=== PATIENT | male | born 1995 | race Caucasian/White ===

== ENCOUNTER 2019-02-20 08:52 | Emergency (ER) | payer OTHER ==
[2019-02-20 09:01] VITALS: BP 149/94; PULSE 84; TEMP 98.3; BMI 25.7
--- NOTE | 2019-02-20 09:12 | PDOC ---
History of Present Illness - General Chief Complaint: Laceration Stated Complaint: SMALL LACERATION TO BASE OF 3RD TOE RIGHT FOOT Time Seen by Provider: 02/20/19 08:57 - History of Present Illness Initial Comments: 02/20/19 09:14 23 years old cut his left middle toe on a piece of glass at the base bleeding did not stop on its own tetanus up-to-date came to the emergency department no pain. Past History - Past Medical History Allergies/Adverse Reactions: Allergies Allergy/AdvReac Type Severity Reaction Status Date / Time No Known Allergies Allergy Unverified 02/20/19 08:54 Home Medications: Ambulatory Orders NK [No Known Home Medication] 02/20/19 COPD: No - Immunization History Immunization Up to Date: Yes (2012) - Psycho Social/Smoking Cessation Hx Smoking History: Never smoked Information on smoking cessation initiated: No Hx Alcohol Use: Yes (SOCIAL) Drug/Substance Use Hx: Yes (MARIJUANA) Review of Systems - Review of Systems Comments:: 02/20/19 09:15 ROS: A complete review of 10 out of 10 review of systems is taken and is negative apart from what is previously mentioned below and in the HPI. *Physical Exam - Vital Signs Last Vital Signs Temp Pulse Resp BP Pulse Ox 98.3 F 84 16 149/94 100 02/20/19 08:54 02/20/19 08:54 02/20/19 08:54 02/20/19 08:54 02/20/19 08:54 - Physical Exam 02/20/19 09:15 Vitals: Triage Vital signs reviewed General Appearance: No acute distress, well nourished well developed, Skin: Warm and dry, small skin flap laceration to base of right middle toe not amenable to suturing skin is too thin Psych: Normal mood, normal affect Medical Decision Making - Medical Decision Making 02/20/19 09:16 Small skin flap laceration to base of right middle toe approximately 0.5 to 1 cm Skin is thin not amenable to suturing good hemostasis obtained with Steri-Strip and Band-Aid thoroughly irrigated with 250 cc of normal saline Findings, the need for follow-up and strict return instructions discussed with patient. Discharge - Discharge Information Problems reviewed: Yes Clinical Impression/Diagnosis: Laceration Condition: Stable Disposition: HOME - Admission No - Follow up/Referral - Patient Discharge Instructions Patient Printed Discharge Instructions: DI for Laceration Repair Additional Instructions: Leave Steri-Strips in place for 24 to 36 hours change Band-Aid if necessary. Keep dry for the next 5 to 7 days return to the emergency department for any signs of infection or for any concerns. - Post Discharge Activity
== END 2019-02-20 09:24 | disposition home or self-care (01) ==
LOC: FER 08:52
DX: S91.114A Laceration without foreign body of right lesser toe(s) without damage to nail, initial encounter (principal); W25.XXXA Contact with sharp glass, initial encounter; Y93.89 Activity, other specified; Y92.89 Other specified places as the place of occurrence of the external cause
CPT/HCPCS: 99282-25

== ENCOUNTER 2021-10-21 01:02 | Emergency (ER) | payer OTHER ==
[2021-10-21 01:12] VITALS: BMI 25.0
[2021-10-21 01:14] VITALS: BP 122/88; PULSE 89; RESP 18; TEMP 99.2
[2021-10-21] MEDS ORDERED: KETOROLAC TROMETHAMINE 30 MG/1 ML VIAL IM ONE (02:04)
[2021-10-21] MEDS ORDERED: LORazepam 2 MG TABLET PO ONE (02:04)
[2021-10-21] MEDS ORDERED: LORazepam 0.5 MG TABLET ONE (02:17)
[2021-10-21] MEDS ORDERED: KETOROLAC TROMETHAMINE 30 MG/1 ML VIAL ONE (02:17)
== END 2021-10-21 02:30 | disposition home or self-care (01) ==
LOC: FER 01:02
PROC: 3E0233Z Introduction of Anti-inflammatory into Muscle, Percutaneous Approach (ICD-10-PCS; principal; 2021-10-21)
DX: R07.9 Chest pain, unspecified (principal)
CPT/HCPCS: 93005; 99284-25

== ENCOUNTER 2021-11-13 18:35 | Inpatient (IN) | payer OTHER ==
[2021-11-13] MEDS ORDERED: ACETAMINOPHEN 1000 MG/100 ML BAG IVPB ONE (19:37)
[2021-11-13] MEDS ORDERED: SODIUM CHLORIDE 1,000 ML IV STA (19:37)
[2021-11-13 19:41] LABS: HEMATOCRIT 40.7 % (35.4-49); HEMOGLOBIN 13.8 G/dL (11.7-16.9); MCH 31.8 pg (25.7-33.7); MCHC 33.9 g/dl (32.0-35.9); MEAN CELL VOLUME 93.9 fl (80-96); MEAN PLT VOLUME 9.5 fl (7.5-11.1); PLATELET COUNT 198.2 10^3/uL (134-434); RBC 4.33 10^6/uL (4.00-5.60); RDW 14.6 % (11.9-15.9); WHITE BLOOD COUNT 12.5 10^3/uL (4.0-10.8)
[2021-11-13] MEDS ORDERED: ACETAMINOPHEN INJECTION 100 ML IVPB ONE (19:42)
[2021-11-13 19:49] LABS: ALBUMIN 4.3 g/dl (3.4-5.0); BILIRUBIN,TOTAL 0.8 mg/dl (0.2-1); CALCIUM 9.8 mg/dl (8.5-10); TOT PROT 6.9 g/dl (6.4-8.2)
[2021-11-13 22:43] LABS: PLATELET ESTIMATE ADEQUATE
[2021-11-13] MEDS ORDERED: PIPERACILLIN/TAZOBACTAM 4.5 GM VIAL IVPB ONE (22:45)
[2021-11-13] MEDS ORDERED: PIPERACILLIN/TAZOB 4.5 GM 4.5 GM in DEXTROSE 5%-WATER 100 ML IVPB ONE (22:45)
[2021-11-14 04:28] VITALS: BMI 34.6
[2021-11-14] MEDS ORDERED: ACETAMINOPHEN 1000 MG/100 ML BAG IVPB PRN (06:27)
[2021-11-14] MEDS ORDERED: PIPERACILLIN/TAZOB 3.375 GM 3.375 GM in DEXTROSE 5%-WATER - 50 ML IVPB SCH (07:00)
[2021-11-14] MEDS: SODIUM CHLORIDE 1,000 ML IV SCH ×2 (07:53→22:09)
[2021-11-14] MEDS ORDERED: PIPERACILLIN/TAZOB 3.375 GM 3.375 GM in DEXTROSE 5%-WATER - 50 ML IVPB ONE (08:37)
[2021-11-14 08:39] LABS: BASO % 0.4 % (0-2.0); EOS % 0.3 % (0-4.5); HEMATOCRIT 40.8 % (35.4-49); HEMOGLOBIN 13.5 GM/dL (11.7-16.9); MCHC 33.1 g/dl (32.0-35.9); MEAN CELL VOLUME 93.5 fl (80-96); MEAN PLT VOLUME 9.9 fl (7.5-11.1); NEUT % 81.3 % (42.8-82.8); PLATELET COUNT 199 10^3/uL (134-434); RBC 4.36 M/mm3 (4.00-5.60); RDW 14.1 % (11.9-15.9); WHITE BLOOD COUNT 9.6 K/mm3 (4.0-10.0)
[2021-11-14 08:43] LABS: CALCIUM 9.5 mg/dL (8.5-10.1)
[2021-11-14 08:45] LABS: BLOOD UREA NITROGEN 8.1 mg/dL (7-18); MAGNESIUM 2.1 mg/dL (1.8-2.4)
[2021-11-14 08:47] LABS: CREATININE 0.9 mg/dL (0.55-1.3); PHOSPHOROUS 3.4 mg/dL (2.5-4.9)
[2021-11-14 08:49] LABS: BILIRUBIN,TOTAL 0.9 mg/dL (0.2-1); TOT PROT 6.9 g/dl (6.4-8.2)
[2021-11-14 09:13] LABS: INR 1.17 (0.83-1.09); PROTHROMBIN TIME (PATIENT) 13.5 SEC (9.7-13.0)
[2021-11-14 09:16] LABS: ACTIVATED PTT 34.1 SECONDS (25.2-36.5)
[2021-11-14] MEDS ORDERED: ENOXAPARIN NA (PORCINE) 40 MG/0.4 ML DISP.SYRIN SQ SCH (10:00)
[2021-11-14] MEDS: PIPERACILLIN/TAZOB 3.375 GM 3.375 GM in DEXTROSE 5%-WATER - 50 ML IVPB SCH ×2 (10:33→17:20)
[2021-11-15] MEDS: PIPERACILLIN/TAZOB 3.375 GM 3.375 GM in DEXTROSE 5%-WATER - 50 ML IVPB SCH ×3 (02:12→17:25)
[2021-11-15] MEDS ORDERED: PIPERACILLIN/TAZOB 3.375 GM 3.375 GM in DEXTROSE 5%-WATER - 50 ML IVPB SCH (03:00)
[2021-11-15] MEDS ORDERED: LIDOCAINE HCL/PF 2% SDV 5ML VIAL ONE (07:11)
[2021-11-15] MEDS ORDERED: ONDANSETRON 4 MG/2 ML VIAL ONE (07:11)
[2021-11-15] MEDS ORDERED: DEXAMETHASONE SOD PHOSPHATE 4 MG/1 ML VIAL ONE (07:11)
[2021-11-15] MEDS ORDERED: ROCURONIUM BROMIDE 50 MG/5 ML SYRINGE ONE (07:12)
[2021-11-15] MEDS ORDERED: PROPOFOL 20 ML ONE (07:12)
[2021-11-15] MEDS ORDERED: MIDAZOLAM HCL 2 MG/2 ML SINGLE DOSE VIAL ONE (07:12)
[2021-11-15] MEDS ORDERED: BUPIVACAINE HCL/PF 0.5% (5MG/ML) 10 ML VIAL ONE (07:15)
[2021-11-15] MEDS ORDERED: BUPIVACAINE HCL/PF 0.5% (5 MG/ML) 30 ML VIAL IJ ONE (08:04)
[2021-11-15] MEDS ORDERED: oxyCODONE HCL 5 MG TABLET PO PRN (08:12)
[2021-11-15] MEDS ORDERED: ONDANSETRON 4 MG/2 ML VIAL IVPUSH PRN ×2 (08:12→08:57)
[2021-11-15] MEDS ORDERED: ACETAMINOPHEN INJECTION 100 ML IVPB ONE (08:14)
[2021-11-15] MEDS ORDERED: GLYCOPYRROLATE 0.2 MG/1 ML VIAL ONE (08:19)
[2021-11-15] MEDS ORDERED: NEOSTIGMINE METHYLSULFATE 0.5 MG/1 ML - 10 ML MDV ONE (08:19)
[2021-11-15] MEDS: oxyCODONE HCL 5 MG TABLET PO PRN (10:49)
[2021-11-15] MEDS: SODIUM CHLORIDE 1,000 ML IV SCH ×2 (10:51→22:15)
[2021-11-15] MEDS ORDERED: ACETAMINOPHEN 325 MG TABLET (FP) PO PRN (15:05)
[2021-11-15 17:07] LABS: HEMATOCRIT 42.7 % (35.4-49); HEMOGLOBIN 14.2 GM/dL (11.7-16.9); MCH 31.3 pg (25.7-33.7); MCHC 33.2 g/dl (32.0-35.9); MEAN CELL VOLUME 94.1 fl (80-96); MEAN PLT VOLUME 10.2 fl (7.5-11.1); PLATELET COUNT 214 10^3/uL (134-434); RBC 4.54 M/mm3 (4.00-5.60); RDW 13.9 % (11.9-15.9)
[2021-11-15 17:17] LABS: ALBUMIN 4.2 g/dl (3.4-5.0); CALCIUM 9.6 mg/dL (8.5-10.1)
[2021-11-15 17:18] LABS: MAGNESIUM 1.9 mg/dL (1.8-2.4)
[2021-11-15 17:19] LABS: BLOOD UREA NITROGEN 8.9 mg/dL (7-18)
[2021-11-15 17:22] LABS: INR 1.19 (0.83-1.09); PROTHROMBIN TIME (PATIENT) 13.7 SEC (9.7-13.0)
[2021-11-15 17:25] LABS: BILIRUBIN,TOTAL 0.8 mg/dL (0.2-1); TOT PROT 7.5 g/dl (6.4-8.2)
[2021-11-15 18:29] LABS: ANISOCYTOSIS 1+; MACROCYTOSIS 0
[2021-11-16] MEDS: PIPERACILLIN/TAZOB 3.375 GM 3.375 GM in DEXTROSE 5%-WATER - 50 ML IVPB SCH ×2 (02:18→10:18)
[2021-11-16 02:26] VITALS: RESP 19
[2021-11-16 06:33] VITALS: BP 132/77; PULSE 57; TEMP 98.4
[2021-11-16] MEDS: oxyCODONE HCL 5 MG TABLET PO PRN (10:20)
[2021-11-16 10:21] LABS: BASO % 0.2 % (0-2.0); EOS % 0.4 % (0-4.5); HEMATOCRIT 40.1 % (35.4-49); HEMOGLOBIN 13.5 GM/dL (11.7-16.9); LYMPH % 13.7 % (8-40); MCH 31.4 pg (25.7-33.7); MCHC 33.7 g/dl (32.0-35.9); MEAN CELL VOLUME 93.2 fl (80-96); MEAN PLT VOLUME 9.7 fl (7.5-11.1); MONO % 8.2 % (3.8-10.2); NEUT % 77.5 % (42.8-82.8); PLATELET COUNT 196 10^3/uL (134-434)
[2021-11-16 10:50] LABS: CALCIUM 9.1 mg/dL (8.5-10.1)
[2021-11-16 10:51] LABS: ALBUMIN 3.9 g/dl (3.4-5.0)
[2021-11-16 10:55] LABS: BILIRUBIN,TOTAL 0.5 mg/dL (0.2-1)
[2021-11-16] MEDS ORDERED: KETOROLAC TROMETHAMINE 30 MG/1 ML VIAL IVPUSH SCH (11:30)
[2021-11-16] MEDS: SODIUM CHLORIDE 1,000 ML IV SCH (13:04)
== END 2021-11-16 15:01 | disposition home or self-care (01) | DRG 225 ==
LOC: FER 18:35 → J8W 11-14 03:32 → OBSVTOIN 11-14 06:20
PROVIDERS: ADMIT Internal Medicine; ATTEND Nurse Practitioner Family
PROC: 0DTJ4ZZ Resection of Appendix, Percutaneous Endoscopic Approach (ICD-10-PCS; principal; 2021-11-14)
DX: K35.890 Other acute appendicitis without perforation or gangrene (principal); F12.90 Cannabis use, unspecified, uncomplicated; F17.210 Nicotine dependence, cigarettes, uncomplicated; R10.31 Right lower quadrant pain
CPT/HCPCS: 0241U-QW; 36415; 74177-TC; 80053; 81003; 83735; 84100; 85025; 85027; 85610; 85730; 86850; 86900; 86901; 88304-TC; 93005; 93010; 94760; 99285-25; G0378; Q9967